=== PATIENT | female | born 1995 | race Caucasian/White ===

== ENCOUNTER → 2017-06-09 18:48 | Emergency (ER) | payer OTHER ==
--- NOTE | 2017-06-09 20:25 | ED ---
Head Injury - HPI Summary HPI Summary: 21F presents with head injury three weeks ago. Three weeks ago a cow kicked her in the chin and her head was quickly moved forward and back. She states she has been treated for a concussion by [facility] and was getting better but over the past couple days she has increased headache, nausea and feeling out of it. She describes it as a dissociation. She has not head a new head injury. She denies any visual changes. She did not have imaging at the time. [facility] sent her in for an evaluation. She denies any LOC with initially injury. She has not vomited. - History Of Current Complaint Chief Complaint: EDHeadache Stated Complaint: HEADACHE/NAUSEA/DIZZY Time Seen by Provider: 06/09/17 19:47 Pain Intensity: 5 - Allergies/Home Medications Allergies/Adverse Reactions: Allergies Allergy/AdvReac Type Severity Reaction Status Date / Time No Known Allergies Allergy Verified 06/09/17 18:57 PMH/Surg Hx/FS Hx/Imm Hx Endocrine/Hematology History: Denies: Hx Anticoagulant Therapy Cardiovascular History: Denies: Hx Hypertension Infectious Disease History: No Infectious Disease History: Denies: Traveled Outside the [place] in Last 30 Days - Family History Known Family History: Negative: Seizure Disorder - Social History Alcohol Use: None Substance Use Type: Reports: None Smoking Status (MU): Never Smoked Tobacco Review of Systems Negative: Chest Pain Negative: Shortness Of Breath Positive: Nausea Positive: Headache All Other Systems Reviewed And Are Negative: Yes Physical Exam Triage Information Reviewed: Yes Vital Signs On Initial Exam: Initial Vitals Temp Pulse Resp BP Pulse Ox 97.8 F 82 16 141/70 99 06/09/17 18:51 06/09/17 18:51 06/09/17 18:51 06/09/17 18:51 06/09/17 18:51 Vital Signs Reviewed: Yes Appearance: Positive: Well-Appearing Skin: Positive: Warm, Dry Head/Face: Positive: Normal Head/Face Inspection Eyes: Positive: Normal, EOMI, LENCHO, Conjunctiva Clear ENT: Positive: Normal ENT inspection, Pharynx normal, TMs normal Respiratory/Lung Sounds: Positive: Clear to Auscultation, Breath Sounds Present Cardiovascular: Positive: Normal, RRR Abdomen Description: Positive: Nontender, Soft Bowel Sounds: Positive: Present Musculoskeletal: Positive: Normal Neurological: Positive: Sensory/Motor Intact, Alert, Oriented to Person Place, Time, CN Intact II-III, Normal Gait, Heel to Toe, Finger to Nose, Other - able to walk on toes and heel Psychiatric: Positive: Normal - [place] Coma Scale Best Eye Response: 4 - Spontaneous Best Motor Response: 6 - Obeys Commands Best Verbal Response: 5 - Oriented Coma Scale Total: 15 Diagnostics - Vital Signs Vital Signs Temp Pulse Resp BP Pulse Ox 06/09/17 18:51 97.8 F 82 16 141/70 99 - Laboratory Lab Statement: Any lab studies that have been ordered have been reviewed, and results considered in the medical decision making process. - CT brain CT Interpretation: No Acute Changes CT Interpretation Completed By: Radiologist Head Injury Course/Dx Course Of Treatment: 21F presents with head injury three weeks ago. Three weeks ago a cow kicked her in the chin and her head was quickly moved forward and back. She states she has been treated for a concussion by [facility] and was getting better but over the past couple days she has increased headache , nausea and feeling out of it. She describes it as a dissociation. She has not head a new head injury. She denies any visual changes. She did not have imaging at the time. [facility] sent her in for an evaluation. on exam normal neuro exam. normal gait. will get CT to make sure no bleed. will give referral to neurology. - Diagnoses Differential Diagnosis/HQI/PQRI: Concussion With LOC, Concussion Without LOC, Intracranial Bleed Provider Diagnoses: Concussion Discharge - Discharge Plan Condition: Good Disposition: HOME Patient Education Materials: Concussion (ED) Referrals: [facility] - Thien YEPEZ [Primary Care Provider] - Castillo Simms MD [Medical Doctor] - Additional Instructions: Take Tylenol or ibuprofen for headache every 6 hours Follow up with neurology modify activities as tolerated Return to ED if develop vomiting or any new or worsening symptoms
--- NOTE | 2017-06-09 20:30 | RAD ---
INDICATION: Intracranial injury COMPARISON: None TECHNIQUE: Noncontrast axial source images were acquired from the skull base to the vertex. FINDINGS: Ventricles/sulci: The ventricles and cisterns are normal in size and configuration for age. Brain parenchyma: There is no focal parenchymal finding, evidence of intracranial mass, or intracranial mass effect. Intracranial hemorrhage:None. Extra-axial spaces: There are no abnormal extra axial fluid collections or evidence of extra-axial mass. Calvarium: There is no calvarial fracture or other calvarial abnormality. Scalp: There is no evidence of scalp or extracalvarial soft tissue abnormality. Paranasal sinuses/mastoid: The paranasal sinuses and mastoid air cells are clear. Other: None. IMPRESSION: NEGATIVE EXAMINATION
[2017-06-09 21:00] VITALS: BP 132/74
== END | disposition home or self-care (01) ==
LOC: ED 18:48
DX: S06.0X0A Concussion without loss of consciousness, initial encounter (principal); W55.22XA Struck by cow, initial encounter; Y93.89 Activity, other specified; Y92.9 Unspecified place or not applicable; R51 Headache; R11.0 Nausea
CPT/HCPCS: 70450; 99282

== ENCOUNTER → 2017-08-31 | Emergency (ER) | payer OTHER ==
[~2017-08-31] MED LIST: Iohexol 300* (CONTRAST) 10 ML SDV IV ONE; Ketorolac INJ* 30 MG/ML 1 ML VIAL IV PUSH ONE; Ketorolac INJ* 30 MG/ML 1 ML VIAL ONE; Ondansetron INJ* 2 MG/ML VIAL IV ONE; Ondansetron INJ* 2 MG/ML VIAL ONE
[2017-08-31 15:55] LABS: ABS Basophils 0.1 10^3/ul (0-0.2); ABS Eosinophils 0.4 10^3/ul (0-0.6); ABS Lymphocytes 2.6 10^3/ul (1.0-4.8); ABS Monocytes 0.8 10^3/ul (0-0.8); ABS Neutrophils 5.6 10^3/ul (1.5-7.7); ABS Nucleated RBC 0 10^3/ul; Eosinophil % 4.5 % (0-6); Hematocrit 34 % (35-47); Hemoglobin 11.8 g/dl (12.0-16.0); Lymphocyte % 27.2 % (25-47); Mean Corpuscular HGB Conc 34 g/dl (31-36); Mean Corpuscular Hemoglobin 28 pg (27-31); Mean Corpuscular Volume 82 fL (80-97); Mean Platelet Volume 8 um3 (7.4-10.4); Nucleated Red Blood Cells % 0; Platelet Count 238 10^3/ul (150-450); Red Blood Count 4.22 10^6/ul (4.0-5.4); Red Cell Distribution Width 14 % (10.5-15); White Blood Count 9.5 10^3/ul (3.5-10.8)
[2017-08-31 16:07] LABS: INR 0.95 (0.77-1.02)
[2017-08-31 16:41] LABS: EGFR Non-African American 110.3 (>60)
[2017-08-31 18:16] VITALS: BP 114/64
--- NOTE | 2017-08-31 18:38 | RAD ---
Indication: Left-sided abdominal pain. Contrast: Administered 100.2 ml of OMNIPAQUE 300 mg/ml CT of the abdomen and pelvis was performed after oral and IV contrast administration. Coronal and sagittal reconstructed images were obtained. Lung bases demonstrate no pleural fluid, nodules or masses. Heart is normal size without evidence of pericardial effusion. Liver is normal in size. No focal lesions or intrahepatic ductal dilatation is noted. The gallbladder demonstrates no gallstones, pericholecystic fluid or wall thickening. Common duct is not dilated. The spleen is normal in size. Pancreas demonstrates no mass or pancreatic duct dilatation. No adrenal lesions are noted. The kidneys demonstrate symmetric nephrograms without focal lesions. No retroperitoneal lymphadenopathy is noted. CT of the pelvis demonstrates no retroperitoneal or pelvic lymphadenopathy. The colon is filled with stool. No bowel obstruction is noted. Ovarian cysts are noted in both ovaries. No definite free fluid is identified. No hernias are noted. The visualized bony structures are grossly unremarkable. IMPRESSION: No abnormal masses or fluid collections are identified.
--- NOTE | 2017-08-31 19:23 | ED ---
Alvin Alva Nilda, scribed for Caitlin Patterson MD on 08/31/17 at 1640 . Abdominal Pain/Female - HPI Summary HPI Summary: This patient is a 22 year old F presenting to [facility] with a chief complaint of constant moderate left mid-abd pain (dull) with bruising for the past few days. The patient rates the pain 5/10 in severity. Symptoms aggravated by palpation, PO intake, but alleviated by nothing. Patient reports nausea and headache. Patient denies recent trauma, abnormal vaginal symptoms, vaginal discharge, burning with urination, fever, easy bruising, and vomiting. LNMP right after [place]. Pt states she was in [place] 10 days ago when discomfort occurred. Pt returned from [place] last pm. Pt states she did not want to have the abd pain evaluated while she was in [place]. Pt states she was on [place] while in [place] but [place] were [place]. Pt states she does not feel she was exposed to Listeria or Brucellosis. Denies diarrhea. Medications includes Lexapro. NKDA. Last meal was at 1030 this morning. - History of Current Complaint Chief Complaint: EDMilkain Stated Complaint: ABD PAIN & BRUISING,NAUSEA Time Seen by Provider: 08/31/17 15:02 Hx Obtained From: Patient Hx Last Menstrual Period: 08/03/18 ?: No Onset/Duration: Sudden Onset, Lasting Days, Still Present Timing: Constant Severity Initially: Moderate Severity Currently: Moderate Pain Intensity: 5 Pain Scale Used: 0-10 Numeric Location: Other - left mid-abdomen Radiates: No Character: Dull Aggravating Factor(s): Food, Other: - palpation Alleviating Factor(s): Nothing Associated Signs and Symptoms: Positive: Nausea, Other: - headache; denies recent trauma, abnormal vaginal symptoms, burning with urination.. Negative: Fever, Blood in Stool, Urinary Symptoms, Vaginal Bleeding, Vaginal Discharge, Vomiting, Diarrhea Allergies/Adverse Reactions: Allergies Allergy/AdvReac Type Severity Reaction Status Date / Time No Known Allergies Allergy Verified 08/31/17 15:18 PMH/Surg Hx/FS Hx/Imm Hx Previously Healthy: Yes Endocrine/Hematology History: Denies: Hx Anticoagulant Therapy Cardiovascular History: Denies: Hx Hypertension - Surgical History Surgery Procedure, Year, and Place: Ankle reconstruction Infectious Disease History: No Infectious Disease History: Reports: Traveled Outside the [place] in Last 30 Days - [place] - Family History Known Family History: Positive: Diabetes - Type 1, Other - CA, ALS Negative: Seizure Disorder - Social History 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 Negative: Vomiting Positive: other - negative abnormal vaginal symptoms. Negative: burning, discharge Positive: Bruising - abd at site of pain, Other - negative easy bruising Positive: Headache Psychological: Normal All Other Systems Reviewed And Are Negative: Yes Physical Exam - Summary Physical Exam Summary: Appearance: Ill-appearing, moderate pain distress, Overweight Skin: Warm, color reflects adequate perfusion, 5cm purple ecchymosis in area of abdominal pain, no bruises elsewhere Head: Normal Head/Face inspection Eyes: Conjunctiva clear ENT: Normal inspection Neck: Supple, no nodes, no JVD. Respiratory: Lungs clear, Normal breath sounds, no respiratory distress Cardio: RRR, No murmur, pulses normal, brisk capillary refill Abdomen: soft, Left mid-abd tenderness, no masses Bowel sounds: present Musculoskeletal: Strength Intact/ ROM intact. No calf tenderness. No edema. No CVA tenderness. Neuro: Alert, muscle tone normal, facial symmetry, speech normal, sensory/motor intact Psychological: Normal Triage Information Reviewed: Yes Vital Signs On Initial Exam: Initial Vitals Temp Pulse Resp BP Pulse Ox 98.7 F 77 18 121/73 99 08/31/17 13:37 08/31/17 13:37 08/31/17 13:37 08/31/17 13:37 08/31/17 13:37 Vital Signs Reviewed: Yes Diagnostics - Vital Signs Vital Signs Temp Pulse Resp BP Pulse Ox 08/31/17 15:29 62 93/50 98 08/31/17 15:18 79 97 08/31/17 13:37 98.7 F 77 18 121/73 99 - Laboratory Lab Results: Lab Results 08/31/17 08/31/17 08/31/17 Range/Units 15:47 15:47 15:47 WBC 9.5 (3.5-10.8) 10^3/ul RBC 4.22 (4.0-5.4) 10^6/ul Hgb 11.8 L (12.0-16.0) g/dl Hct 34 L (35-47) % MCV 82 (80-97) fL MCH 28 (27-31) pg MCHC 34 (31-36) g/dl RDW 14 (10.5-15) % Plt Count 238 (150-450) 10^3/ul MPV 8 (7.4-10.4) um3 Neut % (Auto) 58.7 (38-83) % Lymph % (Auto) 27.2 (25-47) % [place] % (Auto) 9.0 (1-9) % Eos % (Auto) 4.5 (0-6) % Baso % (Auto) 0.6 (0-2) % Absolute Neuts (auto) 5.6 (1.5-7.7) 10^3/ul Absolute Lymphs (auto) 2.6 (1.0-4.8) 10^3/ul Absolute Monos (auto) 0.8 (0-0.8) 10^3/ul Absolute Eos (auto) 0.4 (0-0.6) 10^3/ul Absolute Basos (auto) 0.1 (0-0.2) 10^3/ul Absolute Nucleated RBC 0 10^3/ul Nucleated RBC % 0 INR (Anticoag Therapy) 0.95 (0.77-1.02) Sodium Pending Potassium Pending Chloride Pending Carbon Dioxide Pending Anion Gap Pending BUN Pending Creatinine Pending Est GFR ( Amer) Pending Est GFR (Non-Af Amer) Pending BUN/Creatinine Ratio Pending Glucose Pending Calcium Pending Magnesium Pending Total Bilirubin Pending AST Pending ALT Pending Alkaline Phosphatase Pending C-Reactive Protein Pending Total Protein Pending Albumin Pending Globulin Pending Albumin/Globulin Ratio Pending Amylase Pending Lipase Pending Beta HCG, Quant < 0.60 mIU/mL Result Diagrams: 08/31/17 15:47 08/31/17 15:47 Lab Statement: Any lab studies that have been ordered have been reviewed, and results considered in the medical decision making process. - CT Abd/Pel CT Interpretation Completed By: Radiologist - CT Abd/Pel, per radiologist, reveals no abnormal masses or fluid collections are identified. Dr. Patterson has reviewed this radiology report. Re-Evaluation - Re-Evaluation First Eval Re-Evaluation Time: 18:20 Change: Worse Comment: Pt reports DHALIWAL and Nausea. Vomited clear liquid Second Eval Re-Evaluation Time: 19:10 Change: Improved Comment: Abd pain is 0-1. Pt states nausea is better. Pt agreeable to D/C. Abdominal Pain Fem Course/Dx - Course Course Of Treatment: This patient is a 22 year old F presenting to [facility] with a chief complaint of constant moderate left mid-abd pain (dull) with bruising for the past few days. Abd pain began while pt was in [place] over a week ago. Pending labs and CT Abd/Pel. CT Abd/Pel, per radiologist, reveals no abnormal masses or fluid collections are identified. Dr. Patterson has reviewed this radiology report. Medications reviewed this visit. In the ED course, the patient was given Trodaol and Zofran. Pt is stable and will be D/C with Dx of abd pain and abd wall bruising. Pt understands and is agreeable with this plan. - Diagnoses Provider Diagnoses: Abdominal pain, Superficial bruising of abdominal wall Discharge - Discharge Plan Condition: Stable Disposition: HOME Patient Education Materials: Acute Abdominal Pain (ED) [facility] - Thien YEPEZ [Primary Care Provider] - 2 Days Additional Instructions: We did not find a cause for your abdominal pain or the bruising, but we did not find a diagnosis of anything serious. We gave a copy of the CT result to you. We gave you ketorolac 30mg IV and zofran 4mg IV for pain and nausea respectively. [facility]2 [facility] if your pain persists. Return to the ER if you have any new or worsening symptoms. The documentation as recorded by the Alvin kan Nilda accurately reflects the service I personally performed and the decisions made by , Caitlin Patterson MD.
[2017-08-31 19:30] LABS: Urine Appearance Clear; Urine Blood Negative (Negative); Urine Color Yellow; Urine Ketones Negative (Negative); Urine Protein Negative (Negative); Urine Specific Gravity 1.021 (1.010-1.030); Urine Urobilinogen Negative (Negative)
== END | disposition home or self-care (01) ==
LOC: ED 13:21
DX: R10.9 Unspecified abdominal pain (principal); S30.1XXA Contusion of abdominal wall, initial encounter; R11.0 Nausea; R51 Headache; X58.XXXA Exposure to other specified factors, initial encounter; Y92.9 Unspecified place or not applicable
CPT/HCPCS: 36415; 74177; 80053; 81003; 82150; 83605; 83690; 83735; 84702; 85025; 85610; 86140; 96374; 96375; 99282; J1885; J2405; Q9967